=== PATIENT | female | born 1945 | race Caucasian/White ===

== ENCOUNTER 2017-09-12 14:49 | Day surgery (SDC) | payer MEDICARE, BC ==
[~2017-09-12] VITALS: Ht 162.6 cm; Wt 71.2 kg
[2017-09-12] MEDS ORDERED: CETIRIZINE HCL5 MG PO (15:08)
[2017-09-12] MEDS ORDERED: ACID CONTROL150 MG PO (15:08)
[2017-09-12] MEDS ORDERED: SUCRALFATE1 GM PO (15:09)
[2017-09-12] MEDS ORDERED: DAILY MULTIPLE1 EACH PO (15:09)
[2017-09-12] MEDS ORDERED: VITAMIN D1000 UNI1 PO (15:09)
[2017-09-12] MEDS ORDERED: CALCITRATE200 MG PO (15:09)
[2017-09-12] MEDS ORDERED: PREDNISOLONE ACE5 ML OPTH (15:10)
--- NOTE | 2017-09-12 17:08 | NUR ---
09/12/17 1708 Paulina Calix 1702-PATIENT ARRIVED TO PACU ON 3L NC O2 SAT 96% PATIENT AWAKE DENIES PAIN.
--- NOTE | 2017-09-13 15:58 | OR ---
[facility] [address], [place] [address] Signed DATE OF OPERATION: 09/12/2017 SURGEON: Audie Mckinnon MD PREOPERATIVE DIAGNOSIS: Gastroesophageal reflux with video esophagogram showing no evidence of hiatal hernia. POSTOPERATIVE DIAGNOSIS: Hiatal hernia with chronic distal esophagitis. PROCEDURE: Esophagogastroduodenoscopy with biopsy. ANESTHESIA: Intravenous sedation, fentanyl 100 mcg, Versed 3 mg. INDICATION: This is a 71-year-old white woman, who is a patient of Dr. Espinoza and is known to have reflux symptoms. She is helped by Carafate and Zantac. She has undergone a video esophagram in May of 2017, which showed moderate reflux, but no sign of hiatal hernia. She has no difficulty swallowing particularly. She has considered the possibility of anti-reflux operation as she is "tired of the reflux." On that basis, I have recommended upper endoscopy to better characterize the problem, in particular assess the GE junction for which anti-reflux operation is beneficial. The risks of bleeding, infection, and perforation related upper endoscopy reviewed. She understands and wished to proceed. FINDINGS: Indeed there was a small hiatal hernia and mild chronic distal esophagitis and no Barton's epithelium, stricture, or neoplasm. Stomach and duodenum were reasonably normal. PROCEDURE: The patient was brought to the endoscopy suite, given topical Hurricaine spray hypopharyngeal anesthesia and placed in the lateral decubitus position left side down. A bite block was placed and intravenous sedation induced with fentanyl and Versed to the point of slurred speech and nystagmus. The Olympus video upper endoscope was passed in the hypopharynx. The vocal cords were normal. The scope was advanced to the esophagus throughout its length. It was normal except in the distal portion. There was mild chronic inflammatory change, but no Barton's epithelium stricture, neoplasm, or Electronically Signed By: AUDIE MCKINNON MD 09/13/17 1558 PATIENT NAME: MAYA YOUNG OPERATIVE REPORT DATE OF : 45 PHYSICIAN: AUDIE MCKINNON MD REPORT #: [id number] REPORT IS CONFIDENTIAL AND NOT TO BE RELEASED WITHOUT AUTHORIZATION [facility] [address], [place] [address] Signed varices. The scope was advanced to the stomach, which was insufflated with air. Rugal folds were normal. Pylorus was normal. Scope was passed through into the normal-appearing duodenum. Biopsies were obtained to assess for celiac disease. The scope was withdrawn and biopsies taken of the antrum for both TRISTA and pathologic testing. A small polyp of the stomach was noted. This was excised, most likely a fundic gland polyp. The scope was further withdrawn and retroflex undertaken showing an obviously effaced flap valve and hiatal hernia. The scope was withdrawn to the distal esophagus where biopsies were obtained. There was no sign of Barton's epithelium. Scope was further withdrawn and no other findings are concern. The patient was taken to recovery room in good condition, having suffered no complications. CONCLUDING DIAGNOSES: Gastroesophageal reflux, managed currently with Zantac and Carafate, doing reasonably well. Hiatal hernia and reflux as expected. PLAN: She will return to see us in approximately 6 weeks. Consideration might be made for anti-reflux operation depending on her preferences. MD EDWINA Bryson/MODL /[id number] cc: Agustín Espinoza MD Electronically Signed By: AUDIE MCKINNON MD 09/13/17 1558 PATIENT NAME: MAYA YOUNG OPERATIVE REPORT DATE OF : 45 PHYSICIAN: AUDIE MCKINNON MD REPORT #: [id number] REPORT IS CONFIDENTIAL AND NOT TO BE RELEASED WITHOUT AUTHORIZATION
== END 2017-09-12 17:50 | disposition home or self-care (01) ==
LOC: DS 14:49 → OPS 14:49
PROVIDERS: Surgery
PROC: 0DB68ZX Excision of Stomach, Via Natural or Artificial Opening Endoscopic, Diagnostic (ICD-10-PCS; 2017-09-12)
PROC: 0DB28ZX Excision of Middle Esophagus, Via Natural or Artificial Opening Endoscopic, Diagnostic (ICD-10-PCS; 2017-09-12)
PROC: 0DB38ZX Excision of Lower Esophagus, Via Natural or Artificial Opening Endoscopic, Diagnostic (ICD-10-PCS; 2017-09-12)
PROC: 0DB98ZX Excision of Duodenum, Via Natural or Artificial Opening Endoscopic, Diagnostic (ICD-10-PCS; principal; 2017-09-12 14:00)
DX: K31.9 Disease of stomach and duodenum, unspecified (principal); K31.7 Polyp of stomach and duodenum; K44.9 Diaphragmatic hernia without obstruction or gangrene; K21.0 Gastro-esophageal reflux disease with esophagitis; Z86.010 Personal history of colon polyps; Z98.890 Other specified postprocedural states; Z79.899 Other long term (current) drug therapy
CPT/HCPCS: 88305; 88342; 99153; G0500; J2250; J3010; J7120